=== PATIENT | male | born 1965 | race Caucasian/White ===

== ENCOUNTER 2016-09-09 17:54 | Emergency (ER) | payer MEDICAID ==
[~2016-09-09 17:54] MED LIST: AMOXICILLIN500 MG PO; BACTRIM DS 8001 TA1 PO; CLINDAMYCIN HC300 MG PO; KEFLEX500 MG PO; NAPROXEN500 MG PO; OXYCODONE HCL15 MG PO; PERCOCET 325 MG1 TA6 PO; PERCOCET 325 MG1 TA7 PO; VICODIN ES 7501 TAB PO; XANAX2 MG PO
[2016-09-09] MEDS ORDERED: BUPRENORPHINE HY8 MG SL (18:00)
[2016-09-09 19:21] LABS: BASO % 0.3 % (0.0-1.0); EOS # 0.2 10*3/uL (0.0-0.4); EOS % 2.2 % (1.0-4.0); HEMOGLOBIN 11.3 g/dl (14.0-18.0); LYMPH # 1.6 10*3/uL (1.3-4.4); LYMPH % 17.9 % (27.0-41.0); MEAN CELL VOLUME 83.7 fl (80.0-94.0); MEAN CORPUSCULAR HGB CONC 32.3 g/dl (33.0-37.0); MEAN PLATELET VOLUME 9.4 fl (9.6-12.3); MONO # 0.5 10*3/uL (0.1-1.0); MONO % 5.8 % (3.0-9.0); NEUT # 6.7 10*3/uL (2.3-7.9); NEUT % 73.4 % (47.0-73.0); PLATELET COUNT AUTOMATED 336 10*3/uL (130-400); RED BLOOD COUNT 4.18 10*6/uL (4.50-5.90); RED CELL DISTRI WIDTH 14.8 % (0-14.5); WHITE BLOOD COUNT 9.2 10*3/uL (4.8-10.8)
[2016-09-09 19:36] LABS: ALBUMIN 3.4 gm/dl (3.1-4.5); ALKALINE PHOSPHATASE 74 U/L (45-117); BILIRUBIN, TOTAL 0.2 mg/dl (0.2-1.0); BUN 19 mg/dl (7-24); CARBON DIOXIDE 27 mmol/L (21-32); CHLORIDE 104 mmol/L (98-107); EST GLOM FILT AFRICAN AMERICAN > 60 ml/min; GLUCOSE 106 mg/dL (65-99); POTASSIUM 4.2 mmol/L (3.5-5.1); SGOT/AST 82 IU/L (3-35); SGPT/ALT 44 U/L (12-78); SODIUM 139 mmol/L (136-145); TOTAL PROTEIN 8.4 gm/dL (6.4-8.2)
[2016-09-09 20:12] LABS: BILIRUBIN NEGATIVE (NEGATIVE); BLOOD TRACE-LYSED (NEGATIVE); CLARITY CLEAR (CLEAR); COLOR YELLOW (YELLOW); GLUCOSE NEGATIVE (NEGATIVE); KETONE NEGATIVE (NEGATIVE); LEUKO ESTERASE NEGATIVE (NEGATIVE); NITRITE NEGATIVE (NEGATIVE); PROTEIN TRACE (NEGATIVE); SPECIFIC GRAVITY 1.025 (1.005-1.030); UROBILINOGEN 0.2 E.U./dl (0.2-1.0)
[2016-09-09 20:19] LABS: URINE AMPHETAMINES < 1000 (1000ng/ml); URINE BARBITURATES < 200 (200ng/ml); URINE COCAINE > 300 (300ng/ml)
[2016-09-09 20:28] LABS: EPITHELIAL CELLS 0-1; MUCOUS TRACE; RBC 0-2 rbc/hpf (0-2); URINE REFLEX COMMENT NO (NO); WBC 0-2 wbc/hpf (0-5)
[2016-09-09] MEDS ORDERED: CEPHALEXIN500 M1 PO (21:35)
== END 2016-09-09 21:41 | disposition home or self-care (01) ==
LOC: ED 17:54
PROVIDERS: Nurse Practitioner Family
DX: T81.4XXA Infection following a procedure, initial encounter (principal); F17.200 Nicotine dependence, unspecified, uncomplicated; Z88.8 Allergy status to other drugs, medicaments and biological substances; Y92.9 Unspecified place or not applicable

== ENCOUNTER 2017-02-02 16:58 | Inpatient (IN) | payer MEDICAID ==
[~2017-02-02] VITALS: Ht 185.4 cm; Wt 90.5 kg
--- NOTE | ~2017-02-02 | O ---
[place], [place] OPERATIVE NOTE NAME: LUCIANA RIZO UNIT #: [id number] ROOM: 529 DOCTOR: CASEY CABALLERO III, DPM BIRTHDATE: [birth year] DOS: 02/07/2017 TIME OF DICTATION: 4:41 p.m. SURGEON: Casey Caballero III, DPM. LOAN INTERVIEWER: Seymour Valencia DPM. ANESTHESIA: Monitored anesthesia care. PREOPERATIVE DIAGNOSES: 1. Abscess, left ankle. 2. Septic arthritis, left ankle. POSTOPERATIVE DIAGNOSES: 1. Abscess, left ankle. 2. Septic arthritis, left ankle. PROCEDURES: 1. Incision and drainage with debridement below deep fascia, left ankle. 2. Aspiration of left ankle. HEMOSTASIS: None. ESTIMATED BLOOD LOSS: 10 mL. MATERIALS: Application of wound VAC at the conclusion of the case. INJECTABLES: Approximately 10 mL of 0.5% Marcaine plain was injected in a local block type fashion at the start of the case. FINDINGS: Consistent with preoperative diagnosis. The patient had a localized abscess appreciated in the anterior aspect of his left ankle that tracked in a proximal as well as a dorsal direction. COMPLICATIONS: None. HISTORY OF PRESENT ILLNESS: This is a 51-year-old male who presented to the hospital on February 02 with a chief complaint of a red, hot, swollen ankle with localized abscess. The patient had injected Subutex into his ankle and slowly it developed into an abscess. Originally, he was taken by General Surgery for an I and D of his left ankle on Friday. We are reconsulted today for our recommendations for concern of residual abscess. On exam, the patient had localized abscess appreciated. He was originally seen by my partner, Dr. Ismael Mallory, who was concerned with a residual abscess to the left ankle and felt that a repeat I and D was necessary. Therefore, we discussed with the patient the options. We felt that it was in his best interest to have the ankle surgically debrided as well as potential aspiration performed to the ankle as well given its close proximity to the ankle joint. Therefore, the patient was consented for an I and D with debridement of his left ankle. [place], [place] OPERATIVE NOTE NAME: LUCIANA RIZO UNIT #: [id number] ROOM: 529 DOCTOR: FEDERICO KLEIN DPMCASEY BIRTHDATE: [birth year] All risks, benefits, complications, procedures, alternatives were discussed and all questions were answered to his apparent satisfaction. The pre, jono and postoperative course was also discussed. PHYSICAL EXAMINATION: VASCULAR: DP and PT pulses are palpable, CFT within normal limits, mild edema about the left ankle. DERMATOLOGY: The patient has a full thickness ulceration and it measures approximately 7 cm x 6 cm to the anterior aspect of his left ankle. There is some localized necrotic tissue as well as positive pus drainage noted with pressure to the wound. No ascending cellulitis or lymphangitis is noted. NEUROLOGIC: Intact, protective sensation. ORTHOPEDIC: Muscle strength is maintained. Negative Homans', negative calf pain. DESCRIPTION OF PROCEDURE: The patient was brought to the operating room and laid on the table in a supine position. His foot was prepped and draped in usual sterile fashion. A pneumatic compression device was placed on the contralateral limb for DVT prophylaxis. No additional antibiotics were administered as patient was receiving antibiotics on the floor. Again, attention was directed to the anterior aspect of the left ankle where again a full-thickness wound was appreciated. There was necrotic tissue appreciated as well as positive pus drainage noted to the lateral aspect of the wound. Full thickness excisional debridement of all nonviable tissue was performed to and through the level of deep fascia. Localized incision and drainage was performed. Approximately 5 mL of pus was noted laterally that appeared to track in both distal as well as proximal direction. Abscess was evacuated. Deep soft tissue cultures were obtained. Healthy bleeding granular tissue was noted. Given the close proximity to the ankle joint, there was concern for a possible septic arthritis. We placed an 18-gauge syringe into the ankle joint outside of the main ulceration where a small, approximately 0.5 mL of fluid was obtained. This fluid was sent for culture and was also sent for fluid analysis as well as cell count. At this time, we then copiously irrigated the ankle with approximately 3 liters of sterile saline using cystoscopy tube drainage. There was healthy bleeding tissue that was appreciated. It appeared that all infected soft tissue had been removed. We then proceeded to apply a wound VAC with good suction and seal. Prior to this, our dirty gloves and drapes were exchanged for clean and we again proceeded to apply the wound VAC. We then proceeded to apply a posterior splint as to prevent motion about the ankle joint and to expedite the healing process. The patient tolerated procedure well. He left the operating room with neurovascular status intact and vital signs stable. Prior to the initial I and D, we proceeded to inject approximately 10 mL of 0.5% Marcaine plain in a local block type fashion proximal to the wound itself. The patient will be readmitted back to the floor for Infectious Disease as well as Medicine followup. [place], [place] OPERATIVE NOTE NAME: DARRIUSLUCIANA UNIT #: [id number] ROOM: 529 DOCTOR: CASEY CABALLERO III, DPM BIRTHDATE: [birth year] CASEY CABALLERO III, DPM CM:OPRECORD:OPERATIVE NOTE [id number] CASEY CABALLERO III, DPM 02/07/171816 interface
--- NOTE | ~2017-02-02 | PR ---
[place], [place] PROGRESS NOTE NAME: LUCIANA RIZO [facility] #: [id number] UNIT #: [id number] ROOM: 529 DOCTOR: AYAAN RANDOLPH M.D. BIRTHDATE: [birth year] DOS: 02/07/2017 WOUND CARE FOLLOWUP NOTE SUBJECTIVE: The patient was seen today. The patient reports continued pain. No fevers overnight and no specific complaints of the antibiotics. PHYSICAL EXAMINATION: VITAL SIGNS: Temperature is 97.7, pulse of 88, respirations 18, blood pressure is 132/70. WOUND EXAMINATION: The dressing was removed. There was serosanguineous drainage that has a marked odor present that has drained all the way through bandaging. The wound appears essentially the same as yesterday as far as there is still large amounts of necrosis still present as before. However, there was concern of a distal part of fluctuance that was not seen yesterday, that area is distal to the original wound and is the size of perhaps a quarter. This area was quite tender to touch. The patient had refused debridement yesterday at the bedside. Podiatry is also following the patient. I discussed with Dr. Mallory regarding the extensive amount of necrosis and the fact the patient really preferred to have a surgical debridement and also the concern about the distal area of fluctuance as well. He examined the patient and there was definitely some pus still present distally to the original wound that tunnels together with the original wound. Due to that fact Dr. Mallory felt that the patient should be debrided in the OR, and he is also going to take him to the operating room today for further surgical debridement. Once again, this patient is going to be left with a very large open wound of left ankle foot area or left distal tibia area and he will need wound care on a consistent basis and can follow up with either the Wound Clinic or Podiatry whoever he wishes to follow up with. AYAAN RANDOLPH MD CM:ZEN [id number] AYAAN RANDOLPH M.D. 02/07/17 1414 interface
--- NOTE | ~2017-02-02 | PROC NOTE ---
[place], [place] PROCEDURE NOTE [id number] UNIT #: [id number] ROOM: 529 DOCTOR: MIRZA LÓPEZ MD BIRTHDATE: [birth year] DOS: 02/03/2017 PREOPERATIVE DIAGNOSIS: Left leg abscess. POSTOPERATIVE DIAGNOSIS: Left leg abscess. PROCEDURE: Incision and drainage of left leg abscess. SURGEON: Mirza López MD BREAD PANNER: None. ANESTHESIA: MAC. INDICATIONS: This is a 51-year-old gentleman with a history of a left leg abscess, who is here for the above-mentioned procedure. The procedure and its complications were explained to the patient in detail and he agreed to proceed. DESCRIPTION OF PROCEDURE: After identifying the patient, the patient was brought to the operating suite and laid in the supine position. After IV sedation was administered, a timeout procedure was called and the parts were then painted and draped in the usual sterile fashion. An incision was made in a transverse fashion over the open area. Pus specimen was sent for culture and sensitivity. Devitalized skin was debrided. Hemostasis was achieved and saline was used for irrigation. Thereafter, the abscess cavity was packed with the help of 1 inch iodoform pack and a dressing was placed. The patient tolerated the procedure well. He was taken to the recovery room in stable fashion. There were no complications. Dr. Mirza López, the attending surgeon, was present throughout the operating case. Mirza López MD CM:PROCNOTE:PROCEDURE NOTE [id number] MIRZA LÓPEZ MD
--- NOTE | ~2017-02-02 | CON ---
[place], [place] REPORT OF CONSULTATION NAME[id number] UNIT #: [id number] ROOM: 529 DOCTOR: ROMEO HENSON,VESTA BIRTHDATE: [birth year] DOS: 02/07/2017 SUBJECTIVE: This 51-year-old white male seen and consulted for evaluation of a left ankle infection and ulceration. The patient states about 4 days prior to admission, he had injected Subutex into the area. It started to get progressively more red and swollen and by about the fourth day after he injected it, it was very red and swollen with black tissue and he was having a lot of pain and a lot of yellow discharge. He came in to the hospital and was subsequently seen by medial surgery who took him to surgery, Friday, for debridement and I and D of the area. The patient's ankle has improved, but has not progressed as far as they would like, so they consulted us for an evaluation. He states he is still having some pain, it is feeling better, but Dr. Ryan had seen the patient as well and she was concerned about the necrotic tissue as well as the drainage in the area. PAST MEDICAL HISTORY: Positive for the abscess of the foot, elevated AST. Lactic acidosis, normocytic anemia, history of sepsis, tachycardia, thrombocytosis. ALLERGIES: The patient has no known drug allergies. The patient does have history of IV drug use. CURRENT MEDICATIONS: Include vancomycin, Nicotrol, Lovenox, Subutex, Xanax, Zosyn, Restoril, Zofran, Tylenol. OBJECTIVE: Upon lower extremity physical examination, pedal pulses are palpable. Hair growth is present. Skin temperature is warm. CFT is less than 2 seconds to all digits. Sensation appears intact and symmetrical. Upon examination of the left anterior ankle and lower leg, there was a very large open area noted that has some surrounding erythema, large area of necrosis is noted within the wound, the area measures probably 7-10 cm in diameter. There is an area about 3-4 cm distal to the wound and the anterior ankle joint that is fluctuant and upon squeezing that area, there is purulence and drainage that comes from that, that comes out through the wound and probing with a Q-tip, it does track from the wound distally towards the mid foot about at least 5 cm. There is again some mild malodor. The erythema is probably about less than 5 cm distally and about 2 cm proximally. It is tender to palpation in the area. Again, he had the surgery on Friday, the MRI was done on February 03 which showed ulceration and abscess along the anterior lateral aspect of lower extremity with numerous locules of gas, ____ cellulitis and abscess. No evidence of osteomyelitis. ASSESSMENT: History of gas gangrene, status post debridement and incision and drainage of the area 4 days ago. He has a large ulceration in the anterior left ankle with necrotic tissue and abscess, possible septic ankle. PLAN: Consult is performed. I saw the patient with Dr. Ryan and because of the tracking distally as well as the purulent drainage and fluctuance, I think the patient needs to go to surgery today for debridement as well as incision and [place], [place] REPORT OF CONSULTATION NAME: LUCIANA RIZO UNIT #: [id number] ROOM: 529 DOCTOR: ROMEO HENSON,VESTA BIRTHDATE: [birth year] drainage of the area where the abscess is. I feel that tracking area needs opened up completely to drain any remaining infection. I discussed with the patient about possibly having a septic ankle joint and the possible need to go in to the ankle joint, open it up, ____ get in there intraoperatively. ____ is going to do the surgery this afternoon. I did make the patient n.p.o. and had surgical consent done. I discussed with the patient the proposed procedure as well as possible complications including worsening infection, nonhealing of the area, sepsis, limb loss and loss of life. He was made n.p.o. and he has not eaten or drank anything since 7:00 this morning. He will go to surgery this afternoon. We will follow up postoperatively, but I did discuss with the patient that this is a very serious condition and that it does put him at risk for possible limb loss if the condition does not improve. Continue with IV antibiotics per Infectious Disease and we will see the patient. The patient will go to surgery this afternoon, sometimes after 2:00. He was given the opportunity to ask questions and all questions were answered. Thank you for the opportunity to take part in the care of this patient. VESTA NATIVIDAD WALTERS CM:CONSTR:REPORT OF CONSULTATION 1301 02/08/17 0049 interface
--- NOTE | ~2017-02-02 | PR ---
[place], [place] PROGRESS NOTE [facility]: [id number] UNIT #: [id number] ROOM: 529 DOCTOR: DANYEL LOTT DPM BIRTHDATE: [birth year] DOS: 02/08/2017 SUBJECTIVE: The patient presents postop I and D of the left ankle. The patient is resting comfortably in bed and with a wound VAC and lower extremity cast intact. Cap refill time is normal to all digits of the left foot with no breakthrough bleeding or complication. Negative calf pain. ASSESSMENT: Postoperative incision and drainage of abscess, left ankle. PLAN: Continue elevation of the lower extremity. Continue wound VAC and cast until Friday. DANYEL LOTT DPM CM:ZEN [id number] DANYEL LOTT DPM 02/08/17 1651 interface
--- NOTE | ~2017-02-02 | PR ---
[place], [place] PROGRESS NOTE NAME: [id number] UNIT #: [id number] ROOM: 529 DOCTOR: VESTA WALTERS DPM BIRTHDATE: [birth year] DOS: 02/10/2017 SUBJECTIVE: The patient is seen postop day #3 status post incision and drainage and debridement of the left ankle. States he feels a lot better His ankle feels better. Denies fever, chills, nausea, vomiting or night sweats. OBJECTIVE: The dressing and posterior splint are removed. Wound VAC is removed. The ankle was very clean and granular, with no surrounding edema or erythema, no purulent drainage or malodor, actually it looks very clean and is healing well at this time. No signs of active infection, clinically. ASSESSMENT: Postop debridement, incision and drainage, left ankle. PLAN: Evaluation and management. Wound VAC was removed. The wound was evaluated. We will have the wound VAC reapplied. Continue with antibiotics per Infectious Disease. He has been nonweightbearing on the left foot with the wound VAC and a dressing. He will follow up as an outpatient either in our office or at the wound care center. This was all discussed with him, he needs to be nonweightbearing on the left lower extremity. VESTA WALTERS DPM CM:PNTRANS [id number] VESTA WALTERS DPM 02/10/17 224 interface
--- NOTE | ~2017-02-02 | CON ---
[place], [place] REPORT OF CONSULTATION NAME[id number] UNIT #: [id number] ROOM: 529 DOCTOR: TOMASA ThompsonAYAAN BIRTHDATE: [birth year] DOS: 02/06/2017 WOUND CARE CONSULTATION HISTORY OF PRESENT ILLNESS: This is a patient who is 51 years old who was admitted to the Emergency Room Department on 02/02/2017 for infection of his leg. He had injected Subutex into that area when trying to find a vein and subsequently developed a small pimple that started a few days prior to his admission that eventually worsened and became quite large and was associated with pain and a severe large abscess. The patient was admitted to the Emergency Room Department, he had surgical consultation and surgical I and D of the left leg abscess that was performed on 02/03/2017. His cultures from the OR grew methicillin-resistant Staph aureus sensitive to clindamycin, linezolid, tetracycline, Bactrim and vancomycin. PAST MEDICAL HISTORY: Significant for the following; chronic back pain, carpal tunnel syndrome. He has had previous abscesses that were never quite as large as the one he currently has. He does have a history of drug abuse as well. SOCIAL HISTORY: He does not drink alcohol. He smokes 1 pack per day x 20 years and uses Subutex. 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 FAMILY HISTORY: Significant for diabetes in his father, no medical problems in his mother. ALLERGIES: No known drug allergies. CURRENT MEDICATIONS: That have been ordered for him are as follows: Vancomycin 1750 mg IV, nicotine inhaler that is used p.r.n. He is on Lovenox 40 subq daily, buprenorphine 8 mg q.12h sublingual, Xanax 1 mg p.o. q.6h p.r.n., Zosyn 3.375 IV q.6h, Restoril 15 q.6h. p.r.n., Zofran q.6h p.r.n., milk of magnesia p.r.n., Dulcolax p.r.n., Tylenol p.r.n. REVIEW OF SYSTEMS: Currently, he says he feels better. The redness that was present has improved. He has no fevers or chills at the present time. No nausea, vomiting, abdominal pains, or diarrhea. No problems with the antibiotics that he is aware of. He still does have some pain and discomfort, but is improved. He said he was up walking a bit today. PHYSICAL EXAMINATION: VITAL SIGNS: His temperature is 98.3, pulse of 76, respirations 20, blood pressure is 133/78. GENERAL: This is an alert male in no acute distress, pleasant and cooperative to examination. Oropharynx is clear. HEENT: Extraocular movements are intact. Sclerae are anicteric. NECK: There is no JVD. LUNGS: Clear to auscultation. CARDIOVASCULAR: S1, S2, regular rate and rhythm. ABDOMEN: Soft and nontender. EXTREMITIES: He has some healing wounds on his wrist and his thumb on his right [place], [place] REPORT OF CONSULTATION NAME: LUCIANA RIZO UNIT #: [id number] ROOM: 529 DOCTOR: AYAAN RANDOLPH M.D. BIRTHDATE: [birth year] hand, which are present from injecting. He does admit to injecting in those areas as well and those appear to be healing. On his left leg has a very large necrotic wound that is measuring approximately 6 cm in length x 10 cm in width in total. There is a large amount of necrotic tissue still present around the entire periphery of the wound as well as the lateral portion of the wound. There is undermining. The patient had refused for me to examine to see how much undermining there is, but he says it does tunnel quite a bit and I expect that with the amount of necrosis that is present that is noted, so he still has that noted. There is an odor present. It is somewhat of a foul odor, also noted upon the bandages when I removed the bandages. The erythema is still present, but it does seem better from when I saw the pictures from when he first came. His pulses are palpable. Feet are warm and he has got good capillary refill. LABORATORY DATA: His white count is 8.9, the highest was 10.9 on the 13th; hemoglobin is 9.9; hematocrit is 31; platelets are 578. He has BUN of 13 and creatinine 0.79, sodium 140, potassium is 4, glucose is 88. His chest x-ray was done for PICC line placement, this shows some mild bibasilar atelectasis, no pneumothorax. He had an x-ray done which showed some gas forming infection of the left lower extremity. No acute osseous problem. He had an MRI done which shows redemonstration of a larger area of ulceration and abscess along the anterior lateral aspect of the lower extremity with numerous floccules of gas unchanged compared with prior study. ASSESSMENT AND PLAN: Large wound of the left leg secondary to injection and infection, abscess, MRSA. He still has evidence of large amount of necrosis and I would recommend debridement. The patient, however, refuses bedside debridement at this time, he said he would rather go back to the OR if needed. Apparently, Podiatry is going to reevaluate the patient as well, so perhaps we will see what they say regarding that. In the meantime, we can use the TheraHoney and Xeroform to help, so it does not adhere to the wound. He complains of pain whenever the 4 x 4s are adherent to the wound. He does have a very large wound and this will take some time to heal and I would recommend strongly outpatient wound clinic once stabilized; however, I think that he would benefit from further debridement if he agrees. I will follow along. AYAAN RANDOLPH MD CM:CONSTR:REPORT OF CONSULTATION 1554 02/08/17 0920 interface
--- NOTE | ~2017-02-02 | PR ---
[place], [place] PROGRESS NOTE NAME: LUCIANA RIZO [facility] #: [id number] UNIT #: [id number] ROOM: 529 DOCTOR: DANYEL LOTT DPM BIRTHDATE: [birth year] DOS: 02/09/2017 SUBJECTIVE: The patient presents postop, I and D, left ankle, day 2. The patient is resting comfortably in bed without problem. OBJECTIVE: The BK cast is intact along with the wound VAC. No calf pain. No signs of breakthrough bleeding. Capillary fill time normal to all digits of the left foot. ASSESSMENT: Postop incision and drainage, left ankle. PLAN: Evaluation and management. Continue wound VAC and immobilization with cast. The patient will be seen tomorrow for followup. DANYEL LOTT DPM CM:PNDION [id number] DANYEL LOTT DPM 02/09/179 interface
[~2017-02-02 16:58] MED LIST changes: +BUPRENORPHINE HY8 MG SL; +CEPHALEXIN500 M1 PO
[2017-02-02 17:04] VITALS: BP 156/77
[2017-02-02 18:27] LABS: ALBUMIN 2.6 gm/dl (3.1-4.5); ALKALINE PHOSPHATASE 299 U/L (45-117); BILIRUBIN, TOTAL 0.3 mg/dl (0.2-1.0); BUN 16 mg/dl (7-24); CARBON DIOXIDE 23 mmol/L (21-32); CHLORIDE 101 mmol/L (98-107); EST GLOM FILT AFRICAN AMERICAN > 60 ml/min; GLUCOSE 136 mg/dL (65-99); MAGNESIUM 2.4 mg/dL (1.5-2.1); SGOT/AST 86 IU/L (3-35); SGPT/ALT 68 U/L (12-78); SODIUM 136 mmol/L (136-145)
[2017-02-02 18:39] LABS: HEMATOCRIT 29.4 % (42.0-52.0); HEMOGLOBIN 9.7 g/dl (14.0-18.0); MEAN CORPUSCULAR HGB 25.7 pg (27.0-31.0); MEAN PLATELET VOLUME 9.4 fl (9.6-12.3); PLATELET COUNT AUTOMATED 501 10*3/uL (130-400); RED BLOOD COUNT 3.77 10*6/uL (4.50-5.90); RED CELL DISTRI WIDTH 16.2 % (0-14.5); WHITE BLOOD COUNT 10.8 10*3/uL (4.8-10.8)
[2017-02-02] MEDS ORDERED: XANAX1 MG PO (18:53)
[2017-02-02 19:21] LABS: BASOPHIL # 0.1 10*3/uL (0-0.1); BASOPHILS 1 % (0-1); EOSINOPHIL # 0.1 10*3/uL (0-0.4); EOSINOPHILS 1 % (1-4); LYMPHOCYTE # 2.3 10*3/uL (1.3-4.4); MONOCYTE # 0.6 10*3/uL (0.1-1.0); NEUTROPHIL # 7.7 10*3/uL (2.3-7.9); NEUTROPHILS 71 % (47-73); PLATELET SUFFICIENCY HIGH (NORMAL); TOTAL CELLS COUNTED 100 #CELLS
[2017-02-02 20:09] LABS: LA>2 REFLEX 2 HR DRAW NOW
[2017-02-02 20:13] VITALS: BP 140/80
[2017-02-02 20:49] LABS: INTERNATIONAL NORM RATIO 1.1 (2.0-3.5); PROTHROMBIN TIME 11.2 SECONDS (9.0-12.4)
[2017-02-03] VITALS (11 sets, daily range): BP systolic 108–137; BP diastolic 63–91
[2017-02-03 06:14] LABS: HEMATOCRIT 27.7 % (42.0-52.0); HEMOGLOBIN 8.9 g/dl (14.0-18.0); MEAN CELL VOLUME 80.3 fl (80.0-94.0); MEAN CORPUSCULAR HGB 25.8 pg (27.0-31.0); MEAN CORPUSCULAR HGB CONC 32.1 g/dl (33.0-37.0); MEAN PLATELET VOLUME 9.7 fl (9.6-12.3); PLATELET COUNT AUTOMATED 501 10*3/uL (130-400); RED BLOOD COUNT 3.45 10*6/uL (4.50-5.90); RED CELL DISTRI WIDTH 16.2 % (0-14.5); WHITE BLOOD COUNT 8.3 10*3/uL (4.8-10.8)
[2017-02-03 06:31] LABS: BUN 15 mg/dl (7-24); CARBON DIOXIDE 26 mmol/L (21-32); CHLORIDE 102 mmol/L (98-107); CHOLESTEROL 92 mg/dL (<200); EST GLOM FILT AFRICAN AMERICAN > 60 ml/min; GLUCOSE 96 mg/dL (65-99); POTASSIUM 3.7 mmol/L (3.5-5.1); SODIUM 137 mmol/L (136-145); TRIGLYCERIDES 106 mg/dl (<150); VLDL CHOLESTEROL 21 mg/dL (6-40)
[2017-02-03 06:38] LABS: INTERNATIONAL NORM RATIO 1.1 (2.0-3.5); PROTHROMBIN TIME 11.4 SECONDS (9.0-12.4)
[2017-02-03 06:39] LABS: FREE T4 1.86 ng/dl (0.76-1.46); HDL CHOLESTEROL 18 mg/dl (40-60); LDL CHOLESTEROL 53 mg/dL (9-159)
[2017-02-03 06:54] LABS: ATYPICAL LYMPHS 1 % (0-0); BASOPHIL # 0.1 10*3/uL (0-0.1); BASOPHILS 1 % (0-1); EOSINOPHIL # 0.1 10*3/uL (0-0.4); EOSINOPHILS 1 % (1-4); LYMPHOCYTE # 1.7 10*3/uL (1.3-4.4); MONOCYTE # 0.6 10*3/uL (0.1-1.0); NEUTROPHIL # 5.9 10*3/uL (2.3-7.9); NEUTROPHILS 71 % (47-73); PLATELET SUFFICIENCY HIGH (NORMAL); POLYCHROMASIA SLIGHT; TOTAL CELLS COUNTED 100 #CELLS
[2017-02-03 07:20] LABS: HEMOGLOBIN A1c 6.3 % (4.8-5.6)
[2017-02-03 07:24] LABS: FOLIC ACID 7.73 ng/mL (>5.38); VITAMIN D, 25-HYDROXY 20.9 ng/mL (30-100)
[2017-02-03 20:13] LABS: LA>2 REFLEX 2 HR DRAW NOW
[2017-02-04] VITALS: BP 123/65
[2017-02-04 04:00] VITALS: BP 120/68
[2017-02-04 08:00] VITALS: BP 131/83
[2017-02-04 09:04] LABS: BUN 10 mg/dl (7-24); CARBON DIOXIDE 21 mmol/L (21-32); CHLORIDE 105 mmol/L (98-107); GLUCOSE 115 mg/dL (65-99); POTASSIUM 4.4 mmol/L (3.5-5.1); SODIUM 138 mmol/L (136-145)
[2017-02-04 09:06] LABS: EST GLOM FILT AFRICAN AMERICAN > 60 ml/min
[2017-02-04 12:00] VITALS: BP 126/71
[2017-02-04 13:29] LABS: BASO % 0.3 % (0.0-1.0); EOS # 0.2 10*3/uL (0.0-0.4); HEMATOCRIT 31.1 % (42.0-52.0); HEMOGLOBIN 10.3 g/dl (14.0-18.0); IG # 0.2 10*3/uL (0.0-0.1); LYMPH # 3.1 10*3/uL (1.3-4.4); LYMPH % 28.6 % (27.0-41.0); MEAN CELL VOLUME 78.3 fl (80.0-94.0); MEAN CORPUSCULAR HGB 25.9 pg (27.0-31.0); MEAN CORPUSCULAR HGB CONC 33.1 g/dl (33.0-37.0); MEAN PLATELET VOLUME 9.3 fl (9.6-12.3); MONO # 0.5 10*3/uL (0.1-1.0); MONO % 4.8 % (3.0-9.0); NEUT # 6.9 10*3/uL (2.3-7.9); NEUT % 62.9 % (47.0-73.0); PLATELET COUNT AUTOMATED 616 10*3/uL (130-400); RED BLOOD COUNT 3.97 10*6/uL (4.50-5.90); WHITE BLOOD COUNT 10.9 10*3/uL (4.8-10.8)
[2017-02-04 16:00] VITALS: BP 130/74
[2017-02-04 20:00] VITALS: BP 118/72
[2017-02-05] VITALS: BP 109/63
[2017-02-05 08:00] VITALS: BP 120/86
[2017-02-05 08:01] LABS: BASO % 0.2 % (0.0-1.0); EOS # 0.2 10*3/uL (0.0-0.4); EOS % 2.9 % (1.0-4.0); HEMATOCRIT 28.2 % (42.0-52.0); IG # 0.1 10*3/uL (0.0-0.1); LYMPH # 2.2 10*3/uL (1.3-4.4); LYMPH % 27.3 % (27.0-41.0); MEAN CELL VOLUME 79.9 fl (80.0-94.0); MEAN CORPUSCULAR HGB 25.5 pg (27.0-31.0); MEAN CORPUSCULAR HGB CONC 31.9 g/dl (33.0-37.0); MEAN PLATELET VOLUME 9.3 fl (9.6-12.3); MONO # 0.5 10*3/uL (0.1-1.0); MONO % 6.1 % (3.0-9.0); NEUT # 5.2 10*3/uL (2.3-7.9); NEUT % 62.8 % (47.0-73.0); PLATELET COUNT AUTOMATED 563 10*3/uL (130-400); RED BLOOD COUNT 3.53 10*6/uL (4.50-5.90); RED CELL DISTRI WIDTH 16.1 % (0-14.5); WHITE BLOOD COUNT 8.2 10*3/uL (4.8-10.8)
[2017-02-05 08:12] LABS: BUN 10 mg/dl (7-24); CARBON DIOXIDE 25 mmol/L (21-32); CHLORIDE 108 mmol/L (98-107); EST GLOM FILT AFRICAN AMERICAN > 60 ml/min; GLUCOSE 84 mg/dL (65-99); POTASSIUM 3.8 mmol/L (3.5-5.1); SODIUM 142 mmol/L (136-145)
[2017-02-05 12:00] VITALS: BP 114/66
[2017-02-05 16:00] VITALS: BP 125/72
[2017-02-05 20:00] VITALS: BP 145/73
[2017-02-06] VITALS: BP 109/65
[2017-02-06 06:46] LABS: BASO % 0.5 % (0.0-1.0); EOS # 0.3 10*3/uL (0.0-0.4); EOS % 3.1 % (1.0-4.0); HEMOGLOBIN 9.9 g/dl (14.0-18.0); IG # 0.1 10*3/uL (0.0-0.1); LYMPH # 2.6 10*3/uL (1.3-4.4); LYMPH % 29.5 % (27.0-41.0); MEAN CELL VOLUME 80.7 fl (80.0-94.0); MEAN CORPUSCULAR HGB 25.8 pg (27.0-31.0); MEAN CORPUSCULAR HGB CONC 31.9 g/dl (33.0-37.0); MONO # 0.5 10*3/uL (0.1-1.0); MONO % 5.8 % (3.0-9.0); NEUT # 5.3 10*3/uL (2.3-7.9); NEUT % 60.2 % (47.0-73.0); PLATELET COUNT AUTOMATED 578 10*3/uL (130-400); RED BLOOD COUNT 3.84 10*6/uL (4.50-5.90); RED CELL DISTRI WIDTH 16.2 % (0-14.5); WHITE BLOOD COUNT 8.9 10*3/uL (4.8-10.8)
[2017-02-06 06:57] LABS: BUN 13 mg/dl (7-24); CARBON DIOXIDE 24 mmol/L (21-32); CHLORIDE 106 mmol/L (98-107); EST GLOM FILT AFRICAN AMERICAN > 60 ml/min; GLUCOSE 88 mg/dL (65-99); SODIUM 140 mmol/L (136-145)
[2017-02-06 08:00] VITALS: BP 118/76
[2017-02-06 12:00] VITALS: BP 133/78
[2017-02-06 16:00] VITALS: BP 132/84
[2017-02-06 20:00] VITALS: BP 147/85
[2017-02-07] VITALS (10 sets, daily range): BP systolic 105–157; BP diastolic 56–90
[2017-02-07 06:22] LABS: BASO % 0.4 % (0.0-1.0); EOS # 0.3 10*3/uL (0.0-0.4); HEMATOCRIT 29.8 % (42.0-52.0); HEMOGLOBIN 9.4 g/dl (14.0-18.0); IG # 0.1 10*3/uL (0.0-0.1); LYMPH # 2.5 10*3/uL (1.3-4.4); LYMPH % 29.9 % (27.0-41.0); MEAN CELL VOLUME 80.3 fl (80.0-94.0); MEAN CORPUSCULAR HGB 25.3 pg (27.0-31.0); MEAN CORPUSCULAR HGB CONC 31.5 g/dl (33.0-37.0); MONO # 0.6 10*3/uL (0.1-1.0); MONO % 7.2 % (3.0-9.0); NEUT # 4.7 10*3/uL (2.3-7.9); NEUT % 56.8 % (47.0-73.0); PLATELET COUNT AUTOMATED 579 10*3/uL (130-400); RED BLOOD COUNT 3.71 10*6/uL (4.50-5.90); RED CELL DISTRI WIDTH 16.1 % (0-14.5); WHITE BLOOD COUNT 8.3 10*3/uL (4.8-10.8)
[2017-02-07 06:51] LABS: BUN 14 mg/dl (7-24); CARBON DIOXIDE 26 mmol/L (21-32); CHLORIDE 105 mmol/L (98-107); EST GLOM FILT AFRICAN AMERICAN > 60 ml/min; GLUCOSE 92 mg/dL (65-99); POTASSIUM 3.9 mmol/L (3.5-5.1); SODIUM 139 mmol/L (136-145)
[2017-02-07 17:49] LABS: BODY FLUID RBC 1000 /uL; BODY FLUID WBC 0 /uL
[2017-02-07 18:31] LABS: BODY FLUID TYPE SYNOVIAL
[2017-02-08] VITALS: BP 136/79
[2017-02-08 07:10] LABS: BASO % 0.3 % (0.0-1.0); EOS # 0.4 10*3/uL (0.0-0.4); EOS % 3.3 % (1.0-4.0); HEMATOCRIT 30.2 % (42.0-52.0); HEMOGLOBIN 9.6 g/dl (14.0-18.0); IG # 0.1 10*3/uL (0.0-0.1); LYMPH # 2.9 10*3/uL (1.3-4.4); LYMPH % 26.5 % (27.0-41.0); MEAN CORPUSCULAR HGB 25.7 pg (27.0-31.0); MEAN CORPUSCULAR HGB CONC 31.8 g/dl (33.0-37.0); MEAN PLATELET VOLUME 9.2 fl (9.6-12.3); MONO # 0.8 10*3/uL (0.1-1.0); MONO % 7.3 % (3.0-9.0); NEUT # 6.8 10*3/uL (2.3-7.9); NEUT % 61.3 % (47.0-73.0); PLATELET COUNT AUTOMATED 618 10*3/uL (130-400); RED BLOOD COUNT 3.73 10*6/uL (4.50-5.90); RED CELL DISTRI WIDTH 16.8 % (0-14.5); WHITE BLOOD COUNT 11.1 10*3/uL (4.8-10.8)
[2017-02-08 07:47] LABS: BUN 14 mg/dl (7-24); CARBON DIOXIDE 26 mmol/L (21-32); CHLORIDE 104 mmol/L (98-107); EST GLOM FILT AFRICAN AMERICAN > 60 ml/min; GLUCOSE 83 mg/dL (65-99); POTASSIUM 4.1 mmol/L (3.5-5.1); SODIUM 139 mmol/L (136-145)
[2017-02-08 08:00] VITALS: BP 109/62
[2017-02-08 11:45] VITALS: BP 124/69
[2017-02-08 16:00] VITALS: BP 114/64
[2017-02-08 20:00] VITALS: BP 130/57
[2017-02-09] VITALS: BP 103/56
[2017-02-09 06:30] LABS: BASO % 0.4 % (0.0-1.0); EOS # 0.5 10*3/uL (0.0-0.4); EOS % 4.7 % (1.0-4.0); HEMATOCRIT 29.8 % (42.0-52.0); HEMOGLOBIN 9.5 g/dl (14.0-18.0); IG # 0.1 10*3/uL (0.0-0.1); LYMPH # 3.2 10*3/uL (1.3-4.4); LYMPH % 30.2 % (27.0-41.0); MEAN CELL VOLUME 81.2 fl (80.0-94.0); MEAN CORPUSCULAR HGB 25.9 pg (27.0-31.0); MEAN CORPUSCULAR HGB CONC 31.9 g/dl (33.0-37.0); MEAN PLATELET VOLUME 9.1 fl (9.6-12.3); MONO # 0.8 10*3/uL (0.1-1.0); MONO % 7.7 % (3.0-9.0); NEUT # 5.9 10*3/uL (2.3-7.9); PLATELET COUNT AUTOMATED 572 10*3/uL (130-400); RED BLOOD COUNT 3.67 10*6/uL (4.50-5.90); RED CELL DISTRI WIDTH 17.1 % (0-14.5); WHITE BLOOD COUNT 10.5 10*3/uL (4.8-10.8)
[2017-02-09 08:00] VITALS: BP 112/62
[2017-02-09 12:00] VITALS: BP 110/60
[2017-02-09 16:00] VITALS: BP 106/66
[2017-02-09 20:00] VITALS: BP 128/79
[2017-02-09 20:02] VITALS: BP 131/72
[2017-02-10] VITALS: BP 104/64
[2017-02-10 04:33] VITALS: BP 113/66
[2017-02-10 06:59] LABS: ALBUMIN 2.4 gm/dl (3.1-4.5); BUN 12 mg/dl (7-24); CARBON DIOXIDE 27 mmol/L (21-32); CHLORIDE 105 mmol/L (98-107); EST GLOM FILT AFRICAN AMERICAN > 60 ml/min; GLUCOSE 92 mg/dL (65-99); POTASSIUM 3.7 mmol/L (3.5-5.1); SGOT/AST 49 IU/L (3-35); SGPT/ALT 52 U/L (12-78); SODIUM 141 mmol/L (136-145)
[2017-02-10 07:02] LABS: ALKALINE PHOSPHATASE 135 U/L (45-117); BILIRUBIN, TOTAL 0.2 mg/dl (0.2-1.0); TOTAL PROTEIN 8.1 gm/dL (6.4-8.2)
[2017-02-10 08:00] VITALS: BP 110/58
[2017-02-10] MEDS ORDERED: D-1000 185 MG-11 TAB PO (10:11)
[2017-02-10 12:00] VITALS: BP 118/62; BP 124/62
[2017-02-10] MEDS ORDERED: ORBACTIV400 MG IV (12:02)
[2017-02-10] MEDS ORDERED: NORCO 7.5-3251 EACH PO (13:16)
[2017-02-10] MEDS ORDERED: CIPRO500 MG PO (14:21)
== END 2017-02-10 14:53 | disposition home health service (06) | DRG 853 ==
LOC: ED 16:58 → 5E 19:22 → EDHOLD 19:22 → 5E 19:47
PROVIDERS: Family Medicine; Hospitalist; Internal Medicine; Nurse Practitioner Family; Podiatrist Foot & Ankle Surgery
PROC: 0Y9L0ZX Drainage of Left Ankle Region, Open Approach, Diagnostic (ICD-10-PCS; 2017-02-03)
PROC: 02H633Z Insertion of Infusion Device into Right Atrium, Percutaneous Approach (ICD-10-PCS; 2017-02-04)
PROC: 0JBR0ZZ Excision of Left Foot Subcutaneous Tissue and Fascia, Open Approach (ICD-10-PCS; principal; 2017-02-07)
DX: A41.9 Sepsis, unspecified organism (principal); E43 Unspecified severe protein-calorie malnutrition; E87.2 Acidosis; L03.116 Cellulitis of left lower limb; L02.416 Cutaneous abscess of left lower limb; L97.329 Non-pressure chronic ulcer of left ankle with unspecified severity; M00.9 Pyogenic arthritis, unspecified; R65.20 Severe sepsis without septic shock; D64.9 Anemia, unspecified; D47.3 Essential (hemorrhagic) thrombocythemia; M76.60 Achilles tendinitis, unspecified leg; E55.9 Vitamin D deficiency, unspecified; M77.52 Other enthesopathy of left foot and ankle; F17.210 Nicotine dependence, cigarettes, uncomplicated; G89.29 Other chronic pain; B95.62 Methicillin resistant Staphylococcus aureus infection as the cause of diseases classified elsewhere; M54.9 Dorsalgia, unspecified; R74.0 Nonspecific elevation of levels of transaminase and lactic acid dehydrogenase [LDH]; Z53.29 Procedure and treatment not carried out because of patient's decision for other reasons; Z83.3 Family history of diabetes mellitus; Z71.6 Tobacco abuse counseling